=== PATIENT | male | born 1960 | race Caucasian/White ===

== ENCOUNTER 2019-09-27 21:14 | Emergency (ER) | payer OTHER, MEDICAID ==
[~2019-09-27] VITALS: Ht 172.7 cm; Wt 79.4 kg
[2019-09-27] MEDS ORDERED: IBUPROFEN 600 MG TAB PO ONE (22:00)
[2019-09-28] MEDS ORDERED: ONDANSETRON ODT 4 MG TAB PO ONE (00:15)
[2019-09-28] MEDS ORDERED: MORPHINE SULF INJ 2 MG/ML SYRINGE 1ML IM ONE ×2 (00:15)
[2019-09-28 03:33] LABS: Basophils # (auto) 0 10 ^3/uL (0-0.2); Basophils % (auto) 0.4 % (0.0-2.0); Eosinophils # (auto) 0 10 ^3/uL (0-0.8); Eosinophils % (auto) 0.1 % (0.0-7.0); Hematocrit 43.6 % (41.0-53.0); Hemoglobin 14.7 g/dL (13.5-17.5); Lymphocytes # (auto) 1.5 10 ^3/uL (0.4-5.4); Lymphocytes % (auto) 15.5 % (10.0-50.0); Mean Corpuscular Hemoglobin 31.2 pg (28.0-32.0); Mean Corpuscular Hgb Conc. 33.7 g/dL (32.0-36.0); Mean Corpuscular Volume 92.7 fL (80.0-100.0); Monocytes # (auto) 0.9 10 ^3/uL (0-1.3); Monocytes % (auto) 9.1 % (0.0-12.0); Neutrophils # (auto) 7.1 10 ^3/uL (1.6-8.6); Neutrophils % (auto) 74.9 % (37.0-80.0); Nucleated Red Blood Cells % 0.1 %; Platelet Count (auto) 198 10^3/uL (140-450); Red Cell Distribution Width 13.7 % (11.8-14.3); White Blood Cell 9.5 10^3/uL (4.4-10.8)
[2019-09-28 03:51] LABS: INR 1.09 (0.9-1.15); Partial Thromboplastin Time 25.1 sec (23.64-32.05)
[2019-09-28 03:52] LABS: Potassium 3.4 mmol/L (3.5-5.1)
[2019-09-28 04:01] LABS: Albumin 3.4 g/dL (3.4-5.0); BUN/Creatinine Ratio 17.7; Bilirubin, Total 0.5 mg/dL (0.2-1.0); Calcium 8.1 mg/dL (8.5-10.1); Magnesium 2.1 mg/dL (1.6-2.6); Total Protein 6.3 g/dL (6.4-8.2)
[2019-09-28] MEDS ORDERED: HYDROmorphone HCL 2 MG/ML VL IM ONE (06:00)
[2019-09-28 06:57] VITALS: BP 136/90
== END 2019-09-28 06:59 | disposition short-term general hospital (02) ==
LOC: EDBD 21:14 → ER 21:18
DX: S72.452A Displaced supracondylar fracture without intracondylar extension of lower end of left femur, initial encounter for closed fracture (principal); M97.12XA Periprosthetic fracture around internal prosthetic left knee joint, initial encounter; W01.0XXA Fall on same level from slipping, tripping and stumbling without subsequent striking against object, initial encounter; Y93.01 Activity, walking, marching and hiking; Y92.89 Other specified places as the place of occurrence of the external cause; Y99.8 Other external cause status; Z87.891 Personal history of nicotine dependence
CPT/HCPCS: 29505; 36415; 73562; 80053; 83735; 85025; 85610; 85730; 96372; 99285; J1170; J2270; Q0162

== ENCOUNTER → 2022-11-30 | Outpatient (CLI) | payer OTHER ==
[2022-11-30 15:04] LABS: Alcohol, Urine < 3.0 mg/dL (0-10); Amphetamine Screen, Urine NEGATIVE (NEGATIVE); Barbiturate Scree,Urine NEGATIVE (NEGATIVE); Benzodiazephine Screen, Urine NEGATIVE (NEGATIVE); Cannabinoid Screen, Urine NEGATIVE (NEGATIVE); Cocaine Screen, Urine NEGATIVE (NEGATIVE); Phencyclidine Screen, Urine NEGATIVE (NEGATIVE)
[2022-11-30 15:11] LABS: Opiate Scree,Urine POSITIVE (NEGATIVE)
[2022-11-30 15:23] LABS: Calcium 8.8 mg/dL (8.5-10.1); Potassium 3.5 mmol/L (3.5-5.1)
[2022-11-30 15:27] LABS: BUN/Creatinine Ratio 10.3 (10.0-20.0)
== END | disposition home or self-care (01) ==
LOC: LAB 14:12
PROVIDERS: ATTEND Specialist
DX: F11.20 Opioid dependence, uncomplicated (principal)
CPT/HCPCS: 36415; 80048; 80307; 84403

== ENCOUNTER → 2023-02-21 | Outpatient (CLI) | payer OTHER ==
[2023-02-21 16:02] LABS: Triglycerides 73 mg/dL (< 150)
[2023-02-21 16:03] LABS: LDL Cholesterol 91 mg/dL (< 100)
[2023-02-21 16:04] LABS: Cholesterol 153 mg/dL (< 200); HDL Cholesterol 56 mg/dL (40-59)
== END | disposition home or self-care (01) ==
LOC: LAB 14:27
PROVIDERS: ATTEND Internal Medicine
DX: F11.20 Opioid dependence, uncomplicated (principal)
CPT/HCPCS: 36415; 80061

== ENCOUNTER → 2023-04-06 | Outpatient (CLI) | payer OTHER ==
[2023-04-06 16:16] LABS: Basophils # (auto) 0 10 ^3/uL (0-0.2); Basophils % (auto) 0.9 % (0.0-2.0); Eosinophils # (auto) 0 10 ^3/uL (0-0.8); Eosinophils % (auto) 0.3 % (0.0-7.0); Hematocrit 47.1 % (41.0-53.0); Hemoglobin 15.7 g/dL (13.5-17.5); Lymphocytes # (auto) 0.9 10 ^3/uL (0.4-5.4); Lymphocytes % (auto) 16.8 % (10.0-50.0); Mean Corpuscular Hemoglobin 30.6 pg (28.0-32.0); Mean Corpuscular Hgb Conc. 33.3 g/dL (32.0-36.0); Mean Corpuscular Volume 92.1 fL (80.0-100.0); Monocytes # (auto) 0.4 10 ^3/uL (0-1.3); Neutrophils # (auto) 3.8 10 ^3/uL (1.6-8.6); Red Blood Cells 5.11 10^6/uL (4.5-5.90); Red Cell Distribution Width 13.5 % (11.8-14.3); White Blood Cell 5.1 10^3/uL (4.4-10.8)
[2023-04-06 16:52] LABS: Alanine Aminotransferase 23 U/L (7-40); Alkaline Phosphatase 62 U/L (46-116); Anion Gap 7 (5-15); Aspartate Aminotransferase 21 U/L (13-40); BUN/Creatinine Ratio 7.8 (10.0-20.0); Blood Urea Nitrogen 8 mg/dL (9-23); CRP High Sensitivity 0.11 mg/dL (<1.0); Calcium 9.5 mg/dL (8.5-10.1); Carbon Dioxide 28 mmol/L (20-30); Chloride 107 mmol/L (98-107); Glucose 96 mg/dL (74-106); Sodium 142 mmol/L (136-145)
[2023-04-06 16:53] LABS: Bilirubin, Total 0.4 mg/dL (0.2-1.0); Total Protein 6.1 g/dL (5.7-8.2)
[2023-04-06 17:39] LABS: Amphetamine Screen, Urine Neg (NEGATIVE); Barbiturate Scree,Urine Neg (NEGATIVE); Benzodiazephine Screen, Urine Neg (NEGATIVE); Cocaine Screen, Urine Neg (NEGATIVE); Opiate Scree,Urine Pos (NEGATIVE)
[2023-04-06 17:40] LABS: Cannabinoid Screen, Urine Neg (NEGATIVE); Phencyclidine Screen, Urine Neg (NEGATIVE)
== END | disposition home or self-care (01) ==
LOC: LAB 15:42
PROVIDERS: ATTEND Internal Medicine Rheumatology
DX: E11.9 Type 2 diabetes mellitus without complications (principal); M05.79 Rheumatoid arthritis with rheumatoid factor of multiple sites without organ or systems involvement; M81.8 Other osteoporosis without current pathological fracture; E55.9 Vitamin D deficiency, unspecified; F11.20 Opioid dependence, uncomplicated; Z79.899 Other long term (current) drug therapy
CPT/HCPCS: 36415; 80053; 80307; 83036; 83970; 85025; 86141

== ENCOUNTER → 2023-08-08 | Outpatient (CLI) | payer OTHER ==
[2023-08-08 13:39] LABS: Basophils # (auto) 0 10 ^3/uL (0-0.2); Basophils % (auto) 0.7 % (0.0-2.0); Eosinophils # (auto) 0.1 10 ^3/uL (0-0.8); Eosinophils % (auto) 1.9 % (0.0-7.0); Hematocrit 47.9 % (41.0-53.0); Hemoglobin 16.2 g/dL (13.5-17.5); Mean Corpuscular Hgb Conc. 33.9 g/dL (32.0-36.0); Mean Corpuscular Volume 91.5 fL (80.0-100.0); Monocytes # (auto) 0.5 10 ^3/uL (0-1.3); Monocytes % (auto) 11.5 % (0.0-12.0); Neutrophils % (auto) 63.9 % (37.0-80.0); Nucleated Red Blood Cells % 0.1 %; Red Blood Cells 5.23 10^6/uL (4.5-5.90); Red Cell Distribution Width 13.7 % (11.8-14.3); White Blood Cell 4.7 10^3/uL (4.4-10.8)
[2023-08-08 14:10] LABS: Amphetamine Screen, Urine Neg (NEGATIVE)
[2023-08-08 14:11] LABS: Barbiturate Scree,Urine Neg (NEGATIVE); Benzodiazephine Screen, Urine Neg (NEGATIVE); Cannabinoid Screen, Urine Neg (NEGATIVE); Cocaine Screen, Urine Neg (NEGATIVE); Opiate Scree,Urine Pos (NEGATIVE); Phencyclidine Screen, Urine Neg (NEGATIVE)
[2023-08-08 14:15] LABS: Alanine Aminotransferase 18 U/L (7-40); Albumin 4.3 g/dL (3.2-4.8); Alkaline Phosphatase 63 U/L (46-116); Anion Gap 10 (5-15); Aspartate Aminotransferase 25 U/L (13-40); BUN/Creatinine Ratio 9.6 (10.0-20.0); Blood Urea Nitrogen 9 mg/dL (9-23); Calcium 9.4 mg/dL (8.5-10.1); Carbon Dioxide 24 mmol/L (20-30); Chloride 105 mmol/L (98-107); Glucose 100 mg/dL (74-106); Potassium 3.7 mmol/L (3.5-5.1); Sodium 139 mmol/L (136-145)
[2023-08-08 14:16] LABS: Bilirubin, Total 0.5 mg/dL (0.2-1.0); Total Protein 6.7 g/dL (5.7-8.2)
== END | disposition home or self-care (01) ==
LOC: LAB 13:13
PROVIDERS: ATTEND Internal Medicine Rheumatology
DX: E55.9 Vitamin D deficiency, unspecified (principal); M05.79 Rheumatoid arthritis with rheumatoid factor of multiple sites without organ or systems involvement; Z79.899 Other long term (current) drug therapy
CPT/HCPCS: 36415; 80053; 80307; 82306; 85025